=== PATIENT | male | born 1955 | race Caucasian/White ===

== ENCOUNTER 2020-12-07 21:51 | Inpatient (IN) | payer OTHER ==
[~2020-12-07] VITALS: Ht 172.7 cm; Wt 59.9 kg
--- NOTE | 2020-12-07 22:12 | NUR ---
service technician in room to draw blood from patient.
[2020-12-07] MEDS ORDERED: ONDANSETRON 4 MG/2 ML VIAL IV ONE (22:15)
[2020-12-07] MEDS ORDERED: MORPHINE SULFATE 2 MG/1 ML DISP.SYRIN IV ONE (22:15)
[2020-12-07 22:21] LABS: BASOPHILS % (AUTO) 0.3 % (0.0-2.0); EOSINOPHILS % (AUTO) 0.5 % (0.0-7.0); HEMATOCRIT 46.3 % (36.7-47.1); HEMOGLOBIN 15.7 g/dL (12.5-16.3); LYMPHOCYTES # (AUTO) 2.7 K/uL (20.0-40.0); LYMPHOCYTES % (AUTO) 28.5 % (20.5-51.5); MEAN CORPUSCULAR HEMOGLOBIN 34.2 uug (23.8-33.4); MEAN CORPUSCULAR HGB CONC 34 g/dL (32.5-36.3); MEAN CORPUSCULAR VOLUME 100.6 fL (73.0-96.2); MONOCYTES # (AUTO) 0.7 K/uL (2.0-10.0); MONOCYTES % (AUTO) 7.9 % (0.0-11.0); NEUTROPHILS % (AUTO) 62.8 % (38.5-71.5); PLATELET COUNT (AUTO) 209 K/uL (152-348); WHITE BLOOD COUNT (AUTO) 9.5 K/uL (3.6-10.2)
[2020-12-07] MEDS ORDERED: ONDANSETRON 4 MG/2 ML VIAL ONE (22:29)
[2020-12-07] MEDS ORDERED: MORPHINE SULFATE 2 MG/1 ML DISP.SYRIN ONE (22:29)
--- NOTE | 2020-12-07 22:30 | NUR ---
Patient taken out by electrical design technician for x-rays and CT scan.
[2020-12-07 22:32] LABS: POTASSIUM 3.3 mmol/L (3.5-5.1)
[2020-12-07 22:38] LABS: BILIRUBIN,DIRECT 0.1 mg/dL (0.0-0.2); BILIRUBIN,TOTAL 0.3 mg/dL (0.2-1.0); TOTAL PROTEIN, SERUM 7.3 g/dL (6.4-8.2)
--- NOTE | 2020-12-07 22:50 | NUR ---
prosthetics technician Obi called, blood alcohol level for patient is 0.20.
[2020-12-07] MEDS ORDERED: MORPHINE SULFATE 4 MG/1 ML DISP.SYRIN IV ONE (23:00)
[2020-12-07] MEDS ORDERED: POTASSIUM BICARBONATE/CIT AC 25 MEQ TABLET.EFF PO ONE (23:00)
[2020-12-07] MEDS ORDERED: POTASSIUM BICARBONATE/CIT AC 25 MEQ TABLET.EFF ONE (23:14)
[2020-12-07] MEDS ORDERED: MORPHINE SULFATE 4 MG/1 ML DISP.SYRIN ONE (23:14)
[2020-12-07] MEDS ORDERED: ALBUTEROL SULFATE 2.5 MG/3 ML NEBU NEB ONE (23:15)
[2020-12-07] MEDS ORDERED: ALBUTEROL SULFATE 2.5 MG/3 ML NEBU ONE (23:19)
--- NOTE | 2020-12-07 23:24 | NUR ---
Respiratory therapist in room to provide breathing tx to patient.
[2020-12-08 00:03] LABS: *BILIRUBIN,URIN NEGATIVE (NEGATIVE); *BLOOD, URINE NEGATIVE (NEGATIVE); *CLARITY,URINE CLEAR (CLEAR); *COLOR,URINE YELLOW (YELLOW); *KETONES,URINE NEGATIVE (NEGATIVE); *UROBILINOGEN,URINE 0.2 E.U./dl (NORMAL); LEUKOCYTE ESTERASE ,URINE NEGATIVE (NEGATIVE); NITRITE, URINE NEGATIVE (NEGATIVE); PH,URINE 5.5 (5.0-8.0); UGLUCOSE NEGATIVE (NEGATIVE)
[2020-12-08 00:18] LABS: *AMPHETAMINE, URINE NEGATIVE (NEGATIVE); *CANNABINOID, URINE POSITIVE (NEGATIVE); *COCCAINE, URINE NEGATIVE (NEGATIVE); *OPIATE, URINE NEGATIVE (NEGATIVE); *PHENCYCLIDINE SCREEN,URINE NEGATIVE (NEGATIVE)
--- NOTE | 2020-12-08 00:26 | NUR ---
radiography technician Obi reports patient is COVID negative.
--- NOTE | 2020-12-08 00:45 | NUR ---
[employer] called, Zbigniew Canales paged. Pending call back.
--- NOTE | 2020-12-08 00:57 | NUR ---
DORENE Canales called back, call transferred to MD Pang.
[2020-12-08] MEDS ORDERED: ONDANSETRON 4 MG/2 ML VIAL IV PRN (01:00)
[2020-12-08] MEDS ORDERED: MAGNESIUM HYDROXIDE 30 ML LIQUID UDC PO PRN (01:00)
[2020-12-08] MEDS ORDERED: Z GUARD REMEDY PASTE 57 GM TUBE TOP PRN (01:00)
[2020-12-08] MEDS ORDERED: ACETAMINOPHEN 325 MG TABLET PO PRN (01:00)
--- NOTE | 2020-12-08 01:25 | NUR ---
Called for room, patient will be assigned to telemetry room 306.
--- NOTE | 2020-12-08 01:36 | NUR ---
Report given to СЕРГЕЙ Whiteside.
--- NOTE | 2020-12-08 02:10 | NUR ---
Pt. admitted to telemetry 306, under care of DORENE Canales. Belongs List completed.
[2020-12-08] MEDS: IV NS 1000 ML 1,000 ML IV PRN ×2 (02:24→15:27)
[2020-12-08 02:30] VITALS: BP 158/93
[2020-12-08] MEDS: HYDROCODONE/APAP 10-325 MG TABLET PO PRN ×3 (02:57→17:50)
[2020-12-08 04:03] VITALS: BP 123/80
[2020-12-08] MEDS: PANTOPRAZOLE SODIUM 40 MG TABLET.DR PO SCH (06:53)
--- NOTE | 2020-12-08 07:30 | NUR ---
Received patient in bed awake alert and oriented times 4. Patient complains of rib pain that worsens when he coughs. Monitoring for signs of withdrawal. Safety and seizure precautions are in place. Will continue to monitor.
[2020-12-08] MEDS: HYDROCODONE/APAP 5-325MG TABLET PO PRN ×2 (07:34→14:09)
[2020-12-08] MEDS: THIAMINE HCL 100 MG TABLET PO SCH (08:57)
--- NOTE | 2020-12-08 10:00 | NUR ---
Radiology report from Dr Carranza indicates a mildly increased pneumothorax compared to yesterday. Will make MD aware. Will continue to monitor.
--- NOTE | 2020-12-08 10:30 | NUR ---
Made MD Woods aware of radiology findings.
[2020-12-08 11:33] VITALS: BP 183/87
[2020-12-08 15:09] VITALS: BP 179/95
[2020-12-08] MEDS: LORAZEPAM 2 MG/1 ML VIAL IV PRN (17:50)
--- NOTE | 2020-12-08 18:00 | NUR ---
Patient's blood pressure was elevated. Made MD aware. No new orders given, MD states that elevated BP is side effect of ETOH withdrawal. Gave Ativan and pain medication to see if controlling pain with help decrease BP. Will continue to monitor.
--- NOTE | 2020-12-08 19:36 | NUR ---
Patient is resting in bed. BP is still elevated at 168/102. Gave medications as ordered. Safety precautions are in place. Will endorse to oncoming nurse.
[2020-12-08 20:03] VITALS: BP 168/102
--- NOTE | 2020-12-08 21:53 | NUR ---
report given to Shawna RUSHING who will assume care; safety maintained; continue to monitor.
[2020-12-09] VITALS: BP 147/75
[2020-12-09] MEDS: HYDROCODONE/APAP 10-325 MG TABLET PO PRN ×4 (01:57→22:22)
[2020-12-09 04:03] VITALS: BP 148/75
[2020-12-09] MEDS: IV NS 1000 ML 1,000 ML IV PRN (04:34)
[2020-12-09] MEDS: PANTOPRAZOLE SODIUM 40 MG TABLET.DR PO SCH (06:14)
[2020-12-09 06:57] LABS: BASOPHILS % (AUTO) 0.4 % (0.0-2.0); EOSINOPHILS % (AUTO) 0.5 % (0.0-7.0); HEMATOCRIT 42.1 % (36.7-47.1); HEMOGLOBIN 14.1 g/dL (12.5-16.3); LYMPHOCYTES % (AUTO) 24.1 % (20.5-51.5); MEAN CORPUSCULAR HEMOGLOBIN 33.8 uug (23.8-33.4); MEAN CORPUSCULAR HGB CONC 33 g/dL (32.5-36.3); MEAN CORPUSCULAR VOLUME 101.1 fL (73.0-96.2); MONOCYTES # (AUTO) 1.2 K/uL (2.0-10.0); MONOCYTES % (AUTO) 14.2 % (0.0-11.0); NEUTROPHILS % (AUTO) 60.8 % (38.5-71.5); PLATELET COUNT (AUTO) 193 K/uL (152-348); RED BLOOD CELL COUNT(AUTO) 4.17 MIL/uL (4.06-5.63); WHITE BLOOD COUNT (AUTO) 8.3 K/uL (3.6-10.2)
[2020-12-09 07:38] LABS: CREATININE 0.8 mg/dL (0.6-1.3); MAGNESIUM 2.2 mg/dL (1.8-2.4); PHOSPHOROUS 3.4 mg/dL (2.5-4.9); POTASSIUM 4.5 mmol/L (3.5-5.1)
[2020-12-09 07:40] LABS: THYROID STIMULATING HORMONE 1.466 mIU/mL (0.358-3.740)
[2020-12-09] MEDS: ALBUTEROL SULFATE 2.5 MG/3 ML NEBU NEB SCH ×5 (07:51→22:31)
[2020-12-09] MEDS: IPRATROPIUM BROMIDE 0.5 MG/2.5 ML NEBU NEB SCH ×5 (07:52→22:31)
[2020-12-09] MEDS: THIAMINE HCL 100 MG TABLET PO SCH (08:29)
[2020-12-09] MEDS: methylPREDNISolone SOD SUCC 125 MG/2 ML VIAL IV SCH (08:29)
[2020-12-09 10:14] VITALS: BP 160/86
[2020-12-09] MEDS: HYDROCODONE/APAP 5-325MG TABLET PO PRN ×2 (10:46→18:43)
[2020-12-09 11:28] VITALS: BP 181/94
[2020-12-09 14:42] LABS: EOSINOPHILS % (MANUAL) 2 % (0-8); LYMPHOCYTES % (MANUAL) 25 % (20-40); MONOCYTES % (MANUAL) 12 % (2-10); NEUTROPHILS % (MANUAL) 61 % (42-75)
[2020-12-09 16:00] VITALS: BP 141/84
[2020-12-09 20:08] VITALS: BP 159/86
[2020-12-10] VITALS (8 sets, daily range): BP systolic 154–176; BP diastolic 78–123
[2020-12-10] MEDS: IPRATROPIUM BROMIDE 0.5 MG/2.5 ML NEBU NEB SCH ×5 (02:30→19:55)
[2020-12-10] MEDS: ALBUTEROL SULFATE 2.5 MG/3 ML NEBU NEB SCH ×5 (02:30→19:55)
--- NOTE | 2020-12-10 05:15 | NUR ---
Patient's Iv pulled out .Inserted new Iv line on right AC 22 g with good blood return . Tolerated well.Continue IVF Ns running at 75 ml/hr.Pt c/o rib pain medicated with Star with good result.NSR on tele monitor. Continue safety measures.
[2020-12-10] MEDS: HYDROCODONE/APAP 10-325 MG TABLET PO PRN ×2 (05:29→13:29)
[2020-12-10 06:15] LABS: BASOPHILS % (AUTO) 0.3 % (0.0-2.0); EOSINOPHILS % (AUTO) 0.3 % (0.0-7.0); HEMATOCRIT 43.1 % (36.7-47.1); HEMOGLOBIN 14.2 g/dL (12.5-16.3); LYMPHOCYTES # (AUTO) 1.9 K/uL (20.0-40.0); LYMPHOCYTES % (AUTO) 20.2 % (20.5-51.5); MEAN CORPUSCULAR HEMOGLOBIN 33.2 uug (23.8-33.4); MEAN CORPUSCULAR HGB CONC 33 g/dL (32.5-36.3); MEAN CORPUSCULAR VOLUME 100.6 fL (73.0-96.2); MONOCYTES # (AUTO) 1.1 K/uL (2.0-10.0); MONOCYTES % (AUTO) 12.1 % (0.0-11.0); NEUTROPHILS # (AUTO) 6.2 K/uL (1.8-8.9); NEUTROPHILS % (AUTO) 67.1 % (38.5-71.5); PLATELET COUNT (AUTO) 181 K/uL (152-348); RED BLOOD CELL COUNT(AUTO) 4.28 MIL/uL (4.06-5.63); WHITE BLOOD COUNT (AUTO) 9.2 K/uL (3.6-10.2)
[2020-12-10] MEDS: PANTOPRAZOLE SODIUM 40 MG TABLET.DR PO SCH (06:18)
[2020-12-10 06:31] LABS: CREATININE 0.7 mg/dL (0.6-1.3)
--- NOTE | 2020-12-10 07:48 | NUR ---
Dr Woods notified of welder 2nd shift RN's report that pt has difficulty sleeping and is taking Trazodone at home. Per MD, verify dose first from prescribing pharmacy. Per Pt, his pharmacy is the [facility]", will verify once it opens at 8 am.
--- NOTE | 2020-12-10 08:00 | NUR ---
Notifed Dr Woods that I spoke with Moises from the [facility], who confirmed that patient is taking Trazodome 100 mg 2 tabs at bedtime.
[2020-12-10] MEDS: THIAMINE HCL 100 MG TABLET PO SCH (08:48)
[2020-12-10] MEDS: methylPREDNISolone SOD SUCC 125 MG/2 ML VIAL IV SCH (08:48)
[2020-12-10] MEDS: IV NS 1000 ML 1,000 ML IV PRN (08:48)
--- NOTE | 2020-12-10 09:41 | NUR ---
Pt continues to be resting in bed, with no signs of acute distress. NO verbalizations of SI.HI. No unnecessary cords or wires near bed. Pt with no episodes of aggressive behavior, cooperative with care. Pending midline insertion. launderette attendant at bedside. Addendum: 12/10/20 at 1414 by MARY ELLEN ARIZA RN Wrong pt.
[2020-12-10] MEDS: LIDOCAINE 5% PATCH TD SCH (11:22)
[2020-12-10] MEDS ORDERED: TRAZ-257 PO (15:20)
[2020-12-10] MEDS ORDERED: ATOR10TA PO (16:04)
[2020-12-10] MEDS: LORAZEPAM 2 MG/1 ML VIAL IV PRN (17:05)
--- NOTE | 2020-12-10 17:50 | NUR ---
Pt is stable throughout shift. Tolerated ongoing 15LPM non-rebreather mask and saturating 99% -100%. Pain is managed with Whiting 10/325mg x 1 dose. With episodes of elevated BP, managed with pain medications and medication for restlessness. Slightly effective. MD aware of latest BP: 161/96, no new orders for it. No symptoms, patient denies headache, lightheadedness, pain or discomfort. Resting well at this time. IV running on R FA 20 G, with no issues. Urinates in urinal with hourly output >100cc. Will endorse to incoming shift.
--- NOTE | 2020-12-10 19:30 | NUR ---
Received patient lying in bed. AAOx3 but with periods of confusion with mild restlessness/anxiety noted. Patient was given Ativan 1mg IV at 1705 by day shift nurse. Placed O2 back with non-rebreather mask at 15LPM. NSR on tele at 99/min. IV site on left FA intact and patent and secured with tape and Kerlix. IVF infusing. Safety measure initiated and call avery within reached. Continue to monitor.
--- NOTE | 2020-12-10 20:45 | NUR ---
Patient insisting of getting Trazodone for sleep. Per pt he gets trazadone at night to help him sleep. Also spoke to pt daughter Fay and verified as well that pt was taking Trazodone 200mg nightly for sleep. Telephone call to exchange to arturo Woods. Awaiting for return call.
--- NOTE | 2020-12-10 21:00 | NUR ---
Return call from Dr. Woods received, informed him about patient request for his trazodone. Dr Woods stated he will review med from home and med recon and will order. Awaiting for orders. Notified both patient and patient daughter Fay over the phone.
[2020-12-10] MEDS ORDERED: TRAZODONE 100 MG TABLET PO PRN (21:15)
[2020-12-11 00:04] VITALS: BP 169/66
--- NOTE | 2020-12-11 01:45 | NUR ---
Patient BP 169/66 with HR of 89, retook BP again and obtain 167/77, HR 77. Per pt he has Hx of HTN and was taking Atenolol at one point 3-4 yrs ago but only took it for 2 mos. and stopped because he lost the medication. Pt complaining of headache at this time. Denies any dizziness or chest pain. Dr. Dennison made aware and ordered to start pt on metoprolol 25mg PO Q12 hrs, first dose now and also Hydralazine 25mg po every 6 hrs PRN for SBP above 150. Order verified and will carry out.
[2020-12-11] MEDS: METOPROLOL TARTRATE 25 MG TABLET PO SCH ×3 (01:59→20:20)
[2020-12-11] MEDS ORDERED: hydrALAZINE HCL 25 MG TABLET PO PRN (02:00)
--- NOTE | 2020-12-11 03:04 | NUR ---
Patient refused to have BP check at this time. Requesting to have it checked at 0600. Denies any further headache.
[2020-12-11] MEDS: IV NS 1000 ML 1,000 ML IV PRN (03:37)
[2020-12-11 04:04] VITALS: BP 179/90
--- NOTE | 2020-12-11 06:20 | NUR ---
AAOx3-4 with periods of confusion. Denies any pain or SOB. On O2 at 15LPM via non-rebreather mask. NSR on tele at 80/min. IV site on left FA remains intact and patent and secured with tape and Coban. IVF infusing. Needs attended to and met. Safety measure maintained and call avery within reached.
[2020-12-11 06:27] LABS: BASOPHILS % (AUTO) 0.2 % (0.0-2.0); EOSINOPHILS % (AUTO) 0.1 % (0.0-7.0); HEMATOCRIT 41.2 % (36.7-47.1); HEMOGLOBIN 13.8 g/dL (12.5-16.3); LYMPHOCYTES # (AUTO) 1.9 K/uL (20.0-40.0); LYMPHOCYTES % (AUTO) 18.3 % (20.5-51.5); MEAN CORPUSCULAR HEMOGLOBIN 33.7 uug (23.8-33.4); MEAN CORPUSCULAR HGB CONC 34 g/dL (32.5-36.3); MEAN CORPUSCULAR VOLUME 100.8 fL (73.0-96.2); MONOCYTES # (AUTO) 1.2 K/uL (2.0-10.0); MONOCYTES % (AUTO) 11.5 % (0.0-11.0); NEUTROPHILS # (AUTO) 7.2 K/uL (1.8-8.9); NEUTROPHILS % (AUTO) 69.9 % (38.5-71.5); PLATELET COUNT (AUTO) 199 K/uL (152-348); RED BLOOD CELL COUNT(AUTO) 4.08 MIL/uL (4.06-5.63); WHITE BLOOD COUNT (AUTO) 10.3 K/uL (3.6-10.2)
[2020-12-11] MEDS: PANTOPRAZOLE SODIUM 40 MG TABLET.DR PO SCH (06:28)
[2020-12-11 06:32] VITALS: BP 156/83
[2020-12-11 06:42] LABS: CREATININE 0.8 mg/dL (0.6-1.3); POTASSIUM 4.2 mmol/L (3.5-5.1)
--- NOTE | 2020-12-11 07:30 | NUR ---
Awake, alert, oriented x 3, impulsive. O2 per NRB AT 15L. IVF infusing. Bed alarm on
[2020-12-11] MEDS: IPRATROPIUM BROMIDE 0.5 MG/2.5 ML NEBU NEB SCH ×4 (08:10→20:40)
[2020-12-11] MEDS: ALBUTEROL SULFATE 2.5 MG/3 ML NEBU NEB SCH ×4 (08:10→20:40)
[2020-12-11] MEDS: methylPREDNISolone SOD SUCC 125 MG/2 ML VIAL IV SCH (08:50)
[2020-12-11] MEDS: LIDOCAINE 5% PATCH TD SCH (08:51)
[2020-12-11] MEDS: LORAZEPAM 2 MG/1 ML VIAL IV PRN ×3 (08:51→20:37)
[2020-12-11] MEDS: THIAMINE HCL 100 MG TABLET PO SCH (08:51)
--- NOTE | 2020-12-11 10:00 | NUR ---
Patient became more confused, restless, walking out of room several times, hallucinating "seeing puppies" pulled out IV site.
[2020-12-11 11:45] VITALS: BP 158/80
--- NOTE | 2020-12-11 13:00 | NUR ---
Saline reinserted. Ativan IV given. IVF resumed. Repositioned comfortably. Bed alarm on.
--- NOTE | 2020-12-11 13:30 | NUR ---
Still confused. Removed saline lock, walking out of the room with unsteady gait. Placed on michele chair
[2020-12-11 15:20] VITALS: BP 149/117
[2020-12-11] MEDS: HYDROCODONE/APAP 10-325 MG TABLET PO PRN ×2 (15:29→22:42)
--- NOTE | 2020-12-11 16:30 | NUR ---
Agitated, combative,twisting arms of staff, fall risk 1:1 sitter at bedside. Crisis team consulted
[2020-12-11] MEDS: ENSURE ENLIVE (VAN) 240 ML LIQUID PO SCH (17:00)
--- NOTE | 2020-12-11 19:29 | NUR ---
Crisis team seen and evaluated patient. Placed on hold [id number]; Dr. Cotton on consult; 1:1 sitter at bedside. Endorsed for further care
--- NOTE | 2020-12-11 19:45 | NUR ---
Patient now on 5150 hold. Still very agitation, was able to clim out of reclining chair, being combative and having visual hallucinations. Telephone call to Dr. Cotton and informed him of patient current condition and behavior. Per Dr. Cotton, he believes that patient behavior is still part of alcohol withdrawal (Deliruim tremens) and only gave order of Zyprexa Zydis 5mg ever [address] Cotton instructed this nurse to call cloth measurer machine MD at this time and also inform of pt condition. Will carry out Dr Cotton's order.
--- NOTE | 2020-12-11 19:50 | NUR ---
Telephone call to ELVIN Casiano and informed her of patient current behavior and also informed her what Dr. Cotton had stated. ELVIN Casiano increase order for Ativan from 1mg to 2mg every 4 hours PRN for anxiety/restlessness. Order verified and will carry out.
[2020-12-11] MEDS: OLANZAPINE ZYDIS 5 MG TAB.RAPDIS PO SCH (20:19)
[2020-12-11] MEDS: ATORVASTATIN 10 MG TABLET PO SCH (20:20)
[2020-12-11 20:23] VITALS: BP 169/88
--- NOTE | 2020-12-11 21:10 | NUR ---
Telephone call from pt daughter Fay and updated her of patient condition and states understanding. Fay requesting to speak with the Dr once he visit during the day. Will relay message to day shift RN tomorrow.
[2020-12-11] MEDS: TRAZODONE 100 MG TABLET PO PRN (22:41)
--- NOTE | 2020-12-11 23:30 | NUR ---
Patient refused to have VS checked, getting combative.
[2020-12-12] MEDS: LORAZEPAM 2 MG/1 ML VIAL IV PRN ×4 (00:40→17:37)
[2020-12-12] MEDS: IV NS 1000 ML 1,000 ML IV PRN ×2 (02:37→16:15)
[2020-12-12] MEDS: PANTOPRAZOLE SODIUM 40 MG TABLET.DR PO SCH (06:01)
--- NOTE | 2020-12-12 06:22 | NUR ---
Pt calm and cooperative at this time. Still with periods of restlessness, anxiety and agitation. gets easily angry and becomes combative, refused to have his tele monitor on, keeps on removing it. Refused to have BP check, riff off BP cuff before even being able to get BP. Lorazepam 2mg IV given every 4 hours PRN and somewhat effective. Zyprexa Zydis 5mg po per order given as well. 1:1 sitter on bedside. IV site on right AC remains intact. IVF infusing. Safety measure maintained.
[2020-12-12 06:47] LABS: BASOPHILS # (AUTO) 0.1 K/uL (0.0-8.0); BASOPHILS % (AUTO) 0.6 % (0.0-2.0); EOSINOPHILS # (AUTO) 0.1 K/uL (0.0-0.7); EOSINOPHILS % (AUTO) 0.9 % (0.0-7.0); HEMATOCRIT 44.2 % (36.7-47.1); HEMOGLOBIN 14.5 g/dL (12.5-16.3); LYMPHOCYTES # (AUTO) 2.5 K/uL (20.0-40.0); LYMPHOCYTES % (AUTO) 25.4 % (20.5-51.5); MEAN CORPUSCULAR HEMOGLOBIN 33.4 uug (23.8-33.4); MEAN CORPUSCULAR HGB CONC 33 g/dL (32.5-36.3); MEAN CORPUSCULAR VOLUME 101.9 fL (73.0-96.2); MONOCYTES # (AUTO) 1.3 K/uL (2.0-10.0); MONOCYTES % (AUTO) 13.1 % (0.0-11.0); NEUTROPHILS # (AUTO) 5.8 K/uL (1.8-8.9); PLATELET COUNT (AUTO) 201 K/uL (152-348); RED BLOOD CELL COUNT(AUTO) 4.34 MIL/uL (4.06-5.63); WHITE BLOOD COUNT (AUTO) 9.7 K/uL (3.6-10.2)
[2020-12-12 07:15] LABS: CREATININE 0.7 mg/dL (0.6-1.3)
[2020-12-12] MEDS: ALBUTEROL SULFATE 2.5 MG/3 ML NEBU NEB SCH ×4 (08:30→19:30)
[2020-12-12] MEDS: IPRATROPIUM BROMIDE 0.5 MG/2.5 ML NEBU NEB SCH ×4 (08:37→19:30)
[2020-12-12] MEDS: LIDOCAINE 5% PATCH TD SCH (08:52)
[2020-12-12] MEDS: methylPREDNISolone SOD SUCC 125 MG/2 ML VIAL IV SCH (08:52)
[2020-12-12] MEDS: THIAMINE HCL 100 MG TABLET PO SCH (08:57)
[2020-12-12] MEDS: METOPROLOL TARTRATE 25 MG TABLET PO SCH ×2 (08:58→21:29)
[2020-12-12] MEDS: ENSURE ENLIVE (VAN) 240 ML LIQUID PO SCH ×2 (09:01→17:00)
--- NOTE | 2020-12-12 09:46 | NUR ---
PATIENT IS AWAKE ALERT AND AWARE VERY AGITATED AND RESTLESS GRABBING AND ATTEMPTING TO GET OUT OF BED UNABLE TO REDIRECT MEDICATED WITH ATIVAN ORDERED AT THIS TIME.REMAIN ON ONE ON ONE SITTER FOR SAFETY ON 15 LITERS NRM WITH NO SOB TELE IS OFF DUE TO THE FACT THAT PATIENT REMOVES WILL ATTEMPT TO REATTACH ONCE HE SETTLES DOWN.
--- NOTE | 2020-12-12 10:21 | NUR ---
TELEMETRY LEADS REAPPLIED WITH MUCH DIFFICULTY PATIENT IS GRABBING AND VERY UNCOOPERATIVE VERBALLY ABUSIVE MANAGED TO REAPPLY AT THIS TIME WILL CONTINUE TO OBSERVE
[2020-12-12] MEDS: OLANZAPINE ZYDIS 5 MG TAB.RAPDIS PO SCH (11:35)
--- NOTE | 2020-12-12 11:35 | NUR ---
VERY CONFUSED DISORIENTED TELLING THIS WRITTER AND THE ASSIGNED SITTER TO LEAVE HIS HOUSE ATTEMPTS TO REDIRECT FAILED SO PATIENT MEDICATED WITH ZYPREXA ORAL ORDERED WITH MUCH DIFFICULTY WILL CONTINUE TO OBSERVE.
[2020-12-12 11:45] VITALS: BP 121/52
--- NOTE | 2020-12-12 17:37 | NUR ---
PATIENT REMAINS CONFUSED DISORIENTED DELUSIONAL AND PULLED OUT HIS NRM AND UNCOOPERATIVE WITH CARE UNABLE TO REDIRECT MEDICATED WITH ATIVAN ORDERED MADE COMFORTABLE CONTINUE TO HAVE ONE ON ONE SITTER ORDERED PATIENT IS ON HOLD IVF IN PROGRESS ORDERED APPETITE IS POOR UNABLE DUE TO POOR REALITY ORIENTATION MADE COMFORTABLE WILL OBSERVE.
[2020-12-12 21:10] VITALS: BP 115/62
[2020-12-12] MEDS: ATORVASTATIN 10 MG TABLET PO SCH (21:29)
[2020-12-13] VITALS (7 sets, daily range): BP systolic 141–179; BP diastolic 61–86
--- NOTE | 2020-12-13 00:08 | NUR ---
Received patient in bed asleep. No s/s of acute distress noted at this time. Patient on 15L NRBM with O2 @ 100%, patient compliant with keeping it in place. Tele monitor in place. sinus rhythm noted at this time. Patient is confused, disoriented, and delusional when awake. 1:1 sitter at bedside for [address], expires on 12/14 @ 1850. Reality orientation provided. Safety measures in place, bed locked and in lowest position with alarm on.
[2020-12-13] MEDS: IV NS 1000 ML 1,000 ML IV PRN ×2 (05:20→18:23)
[2020-12-13 06:16] LABS: BASOPHILS # (AUTO) 0.4 K/uL (0.0-8.0); BASOPHILS % (AUTO) 3.2 % (0.0-2.0); EOSINOPHILS # (AUTO) 0.1 K/uL (0.0-0.7); EOSINOPHILS % (AUTO) 1.2 % (0.0-7.0); HEMATOCRIT 42.2 % (36.7-47.1); HEMOGLOBIN 13.9 g/dL (12.5-16.3); LYMPHOCYTES % (AUTO) 16.5 % (20.5-51.5); MEAN CORPUSCULAR HGB CONC 33 g/dL (32.5-36.3); MEAN CORPUSCULAR VOLUME 100.4 fL (73.0-96.2); MONOCYTES # (AUTO) 1.2 K/uL (2.0-10.0); MONOCYTES % (AUTO) 9.7 % (0.0-11.0); NEUTROPHILS # (AUTO) 8.3 K/uL (1.8-8.9); NEUTROPHILS % (AUTO) 69.4 % (38.5-71.5); PLATELET COUNT (AUTO) 206 K/uL (152-348)
[2020-12-13] MEDS: PANTOPRAZOLE SODIUM 40 MG TABLET.DR PO SCH (06:26)
[2020-12-13 06:28] LABS: CREATININE 0.9 mg/dL (0.6-1.3); POTASSIUM 4.1 mmol/L (3.5-5.1)
--- NOTE | 2020-12-13 06:38 | NUR ---
Patient in bed resting, calm demeanor throughout shift. Compliant with medications and care given. Patient denies feeling anxious stating "im just tired and want to sleep". Tele monitor in place. Pt on NRBM at 15L, compliant and kept in place, O2 @ 100%. 1:[address] for safety and hold. All patient needs were met and attended to. Safety measures in place, bed locked and in low position.
[2020-12-13] MEDS: ALBUTEROL SULFATE 2.5 MG/3 ML NEBU NEB SCH ×4 (06:48→19:30)
[2020-12-13] MEDS: IPRATROPIUM BROMIDE 0.5 MG/2.5 ML NEBU NEB SCH ×4 (06:48→19:30)
--- NOTE | 2020-12-13 08:01 | NUR ---
PATIENT SEEN AND EXAMINED BY DR ONOFRE WITH NEW ORDERS AND NOTED.
[2020-12-13] MEDS: THIAMINE HCL 100 MG TABLET PO SCH (08:28)
[2020-12-13] MEDS: methylPREDNISolone SOD SUCC 125 MG/2 ML VIAL IV SCH (08:28)
[2020-12-13] MEDS: METOPROLOL TARTRATE 25 MG TABLET PO SCH ×2 (08:29→20:07)
[2020-12-13] MEDS: ENSURE ENLIVE (VAN) 240 ML LIQUID PO SCH ×2 (08:29→16:01)
--- NOTE | 2020-12-13 08:30 | NUR ---
PATIENT IS MORE ALERT AND COOPERATIVE STATED SLEPT WELL LAST NITE COMPLIANT WITH MEDICATIONS AND CARE REMAIN ON HOLD WITH A SITTER IVF IN PROGRESS ORDERED WILL CONTINUE TO OBSERVE.
[2020-12-13] MEDS: LIDOCAINE 5% PATCH TD SCH (08:33)
--- NOTE | 2020-12-13 12:56 | NUR ---
REMAIN ALERT AND COOPERATIVE HAS A SITTER AT HIS BED SIDE REMAIN ON HOLD O2 ORDERED 15 PERCENT NRM NO S/S OF ETOH WITHDRAWAL AT THIS TIME WILL CONTINUE TO OBSERVE.
--- NOTE | 2020-12-13 17:47 | NUR ---
RESTING IN BED AWAKE ALERT ANSWERING QUESTIONS DENIES DISCOMFORTS APPETITE IS FAIR REMAIN ON IVF ORDERED WITH NO S/S OF INFILTERATION ON SITE MADE COMFORTABLE WILL CONTINUE TO OBSERVE
[2020-12-13] MEDS: ATORVASTATIN 10 MG TABLET PO SCH (20:07)
[2020-12-13] MEDS: HYDROCODONE/APAP 5-325MG TABLET PO PRN (20:14)
[2020-12-13] MEDS: TRAZODONE 100 MG TABLET PO PRN (21:39)
--- NOTE | 2020-12-13 21:59 | NUR ---
Received patient in bed resting. Patient is awake and alert, oriented to place and engaging in meaningful conversation. Compliant with medications and care provided. 1:[address] for hold and safety. Right AC IV patent and intact. Patient on 15L NRBM. Safety measures in place with bed locked and in lowest position.
[2020-12-14 00:05] VITALS: BP 111/57
[2020-12-14 04:49] VITALS: BP 137/75
[2020-12-14] MEDS: PANTOPRAZOLE SODIUM 40 MG TABLET.DR PO SCH (06:06)
--- NOTE | 2020-12-14 06:43 | NUR ---
Patient resting in bed. No s/s of acute distress noted at this time. Compliant with NRBM and tele monitor. Patient denies SOB and pain at this time. 1:[address] for hold[address] All patient needs were met and attended to. Safety measures in place and will endorse to oncoming shift.
[2020-12-14 06:54] LABS: BASOPHILS % (AUTO) 0.1 % (0.0-2.0); EOSINOPHILS # (AUTO) 0.2 K/uL (0.0-0.7); EOSINOPHILS % (AUTO) 1.8 % (0.0-7.0); HEMATOCRIT 39.5 % (36.7-47.1); HEMOGLOBIN 12.7 g/dL (12.5-16.3); LYMPHOCYTES # (AUTO) 2.2 K/uL (20.0-40.0); LYMPHOCYTES % (AUTO) 20.8 % (20.5-51.5); MEAN CORPUSCULAR HEMOGLOBIN 32.9 uug (23.8-33.4); MEAN CORPUSCULAR HGB CONC 32 g/dL (32.5-36.3); MEAN CORPUSCULAR VOLUME 101.8 fL (73.0-96.2); MONOCYTES # (AUTO) 1.2 K/uL (2.0-10.0); MONOCYTES % (AUTO) 11.9 % (0.0-11.0); NEUTROPHILS # (AUTO) 6.8 K/uL (1.8-8.9); NEUTROPHILS % (AUTO) 65.4 % (38.5-71.5); PLATELET COUNT (AUTO) 181 K/uL (152-348); RED BLOOD CELL COUNT(AUTO) 3.88 MIL/uL (4.06-5.63); WHITE BLOOD COUNT (AUTO) 10.4 K/uL (3.6-10.2)
[2020-12-14 07:09] LABS: CREATININE 0.7 mg/dL (0.6-1.3); POTASSIUM 3.6 mmol/L (3.5-5.1)
[2020-12-14] MEDS: IV NS 1000 ML 1,000 ML IV PRN ×2 (07:20→21:41)
[2020-12-14] MEDS: IPRATROPIUM BROMIDE 0.5 MG/2.5 ML NEBU NEB SCH ×6 (07:31→19:55)
[2020-12-14] MEDS: ALBUTEROL SULFATE 2.5 MG/3 ML NEBU NEB SCH ×4 (07:31→19:56)
[2020-12-14 07:43] VITALS: BP 153/70
--- NOTE | 2020-12-14 08:30 | NUR ---
CALL RECEIVED FROM DR DE LA ROSA RE PROGRESS OF THE PATIENT NOTIFIED HIM THAT THE PATIENT WAS BETTER ALERT AND COOPERATIVE AND HAS NOT NEEDED THE PRN MOOD STABILIZERS FOR MORE THAN 24 HOURS NOW AND HE STATED TO CONNECT THE PHONE SO HE CAN SPEAK WITH THE PATIENT SO I DID.
[2020-12-14] MEDS: methylPREDNISolone SOD SUCC 40 MG/ML VIAL IV SCH (09:00)
[2020-12-14] MEDS: METOPROLOL TARTRATE 25 MG TABLET PO SCH ×2 (09:03→21:23)
[2020-12-14] MEDS: THIAMINE HCL 100 MG TABLET PO SCH (09:03)
[2020-12-14] MEDS: LIDOCAINE 5% PATCH TD SCH (09:06)
[2020-12-14] MEDS: ENSURE ENLIVE (VAN) 240 ML LIQUID PO SCH ×2 (09:06→16:49)
--- NOTE | 2020-12-14 09:09 | NUR ---
NOTED NEW ORDER FOR SOLUMEDROL TAPER DOWN BUT ALREADY GAVE THE 60 MG TODAY
--- NOTE | 2020-12-14 10:19 | NUR ---
ACCORDING TO THE PATIENT DR DE LA ROSA TOLD HIM THAT HE WILL BE HERE FOR 2 MORE DAYS AND HE WILL NOT BE REQUIRED TO BE ON HOLD SOON THE 72 HOURS HOLD WAS UP BUT I WAS ABLE TO VERIFY THIS FROM DR HOLT NOTES IN THE MEDITECH THE RVDA MASTER CERTIFIED RV TECHNICIAN NOTIFIED STATED WILL INFORM THE GRADING SUPERVISOR.
[2020-12-14 11:16] VITALS: BP 149/70
--- NOTE | 2020-12-14 14:51 | NUR ---
PER DR WRIGHT NOTES DISCONTINUE HOLD WHEN IT EXPIRES NO 14 DAY HOLD INDICATED. 5150 HOLD WILL TODAY AT 1850
[2020-12-14 15:30] VITALS: BP 150/68
--- NOTE | 2020-12-14 18:36 | NUR ---
IV SITE LEAKING UNABLE TO MANAGE REMOVED AND A NEW ONE INSERTED TO HIS RIGHT UPPER ARM GAUGE 20 AND IVF CONTINUED ORDERED.
[2020-12-14 20:06] VITALS: BP 122/62
[2020-12-14] MEDS: TRAZODONE 100 MG TABLET PO PRN (21:21)
[2020-12-14] MEDS: ATORVASTATIN 10 MG TABLET PO SCH (21:22)
[2020-12-14] MEDS: HYDROCODONE/APAP 10-325 MG TABLET PO PRN (21:42)
[2020-12-15 00:03] VITALS: BP 159/64
[2020-12-15 04:03] VITALS: BP 155/73
[2020-12-15] MEDS: PANTOPRAZOLE SODIUM 40 MG TABLET.DR PO SCH (06:03)
--- NOTE | 2020-12-15 07:02 | NUR ---
Patient rested well in between care; no acute distress; slept well and needs attended; norco x1 given last night; safety maintained; continue to monitor; continue plan of care.
[2020-12-15] MEDS: ALBUTEROL SULFATE 2.5 MG/3 ML NEBU NEB SCH ×4 (07:51→20:04)
[2020-12-15] MEDS: IPRATROPIUM BROMIDE 0.5 MG/2.5 ML NEBU NEB SCH ×4 (07:51→20:04)
[2020-12-15] MEDS: methylPREDNISolone SOD SUCC 40 MG/ML VIAL IV SCH (08:12)
[2020-12-15] MEDS: THIAMINE HCL 100 MG TABLET PO SCH (08:12)
[2020-12-15] MEDS: LIDOCAINE 5% PATCH TD SCH (08:13)
[2020-12-15] MEDS: METOPROLOL TARTRATE 25 MG TABLET PO SCH ×2 (08:13→21:17)
--- NOTE | 2020-12-15 08:15 | NUR ---
PATIENT SEEN AND EXAMINED BY DR MCCARTY WITH NEW ORDERS PATIENT REMAINS ON NRM AT 15L/M WITH NO S/S OF SHORTNESS OF BREATH AT THIS TIME HE IS ALERT AND ORIENTED COOPERATIVE REMAIN ON IVF ORDERED CALL LIGHTS AND PERSONAL BELONGINGS ARE WITHIN EASY REACH NOT IN DISTRESS AT THIS TIME.
[2020-12-15] MEDS: ENSURE ENLIVE (VAN) 240 ML LIQUID PO SCH ×2 (08:47→16:20)
[2020-12-15 11:21] VITALS: BP 136/82
--- NOTE | 2020-12-15 11:30 | NUR ---
PATIENT IS NOR ON ROOM AIR WAS SEEN BY THE RESPIRATORY THERAPIST WHO TITRATED HIM TO ROOM AIR AND DISCONTINUED THE NRM PER DR MCCARTY PATIENT WAS ALSO SEEN BY THE PHYSICAL THERAPY FOR EVALUATION AND HE WAS ABLE TO WALK IN THE HALLWAY WITH THE [facility] ENDURANCE IS GOOD PATIENT IS IN GOOD SPIRITS AND HAPPY THAT HE IS OFF O2 AND MAY BE DISCHARGED TOMORROW.
[2020-12-15] MEDS: IV NS 1000 ML 1,000 ML IV PRN (11:43)
[2020-12-15] MEDS ORDERED: OLANZAPINE ZYDIS 5 MG TAB.RAPDIS PO PRN (14:09)
[2020-12-15 15:02] VITALS: BP 106/71
--- NOTE | 2020-12-15 18:00 | NUR ---
RESTING DENIES DISCOMFORTS ALERT ORIENTED COOPERATIVE WITH IVF IN PROGRESS ORDERED NOT IN DISTRESS AT THIS TIME
[2020-12-15 20:08] VITALS: BP 148/93
[2020-12-15] MEDS: ATORVASTATIN 10 MG TABLET PO SCH (21:16)
[2020-12-15] MEDS: TRAZODONE 100 MG TABLET PO PRN (21:17)
[2020-12-16 00:08] VITALS: BP 137/64
[2020-12-16] MEDS: IV NS 1000 ML 1,000 ML IV PRN (01:23)
--- NOTE | 2020-12-16 01:41 | NUR ---
needs attended to, no acute distress noted. ivf infusing well. no unusual behavior presented. rested fairly wellon room air, tele reading sinus 61.looking forward to his discharge in am.
[2020-12-16 04:08] VITALS: BP 118/76
[2020-12-16] MEDS: PANTOPRAZOLE SODIUM 40 MG TABLET.DR PO SCH (06:22)
[2020-12-16 07:33] LABS: CREATININE 0.7 mg/dL (0.6-1.3); POTASSIUM 4.6 mmol/L (3.5-5.1)
[2020-12-16 07:39] LABS: BASOPHILS % (AUTO) 0.3 % (0.0-2.0); EOSINOPHILS # (AUTO) 0.1 K/uL (0.0-0.7); EOSINOPHILS % (AUTO) 1.5 % (0.0-7.0); HEMATOCRIT 40.2 % (36.7-47.1); HEMOGLOBIN 13.5 g/dL (12.5-16.3); LYMPHOCYTES # (AUTO) 2.3 K/uL (20.0-40.0); LYMPHOCYTES % (AUTO) 24.4 % (20.5-51.5); MEAN CORPUSCULAR HEMOGLOBIN 34.1 uug (23.8-33.4); MEAN CORPUSCULAR HGB CONC 34 g/dL (32.5-36.3); MEAN CORPUSCULAR VOLUME 101.4 fL (73.0-96.2); MONOCYTES # (AUTO) 1.1 K/uL (2.0-10.0); MONOCYTES % (AUTO) 11.9 % (0.0-11.0); NEUTROPHILS # (AUTO) 5.9 K/uL (1.8-8.9); NEUTROPHILS % (AUTO) 61.9 % (38.5-71.5); PLATELET COUNT (AUTO) 202 K/uL (152-348); RED BLOOD CELL COUNT(AUTO) 3.96 MIL/uL (4.06-5.63); WHITE BLOOD COUNT (AUTO) 9.6 K/uL (3.6-10.2)
--- NOTE | 2020-12-16 08:00 | NUR ---
Received change of shift report. pt in bed resting, awake alert and oriented x3. pt on room air, saturating at 97%, ambulatory with physical therapy. Urinal at bedside, IV access on the right upper arm IVF infusing NS at 75cc. bed in low and locked position, call light within reach, safety precautions in place, will continue with plan of care.
[2020-12-16] MEDS: ALBUTEROL SULFATE 2.5 MG/3 ML NEBU NEB SCH ×2 (08:05→11:17)
[2020-12-16] MEDS: IPRATROPIUM BROMIDE 0.5 MG/2.5 ML NEBU NEB SCH ×2 (08:05→11:16)
[2020-12-16] MEDS: THIAMINE HCL 100 MG TABLET PO SCH (08:39)
[2020-12-16] MEDS: METOPROLOL TARTRATE 25 MG TABLET PO SCH (08:39)
[2020-12-16] MEDS: LIDOCAINE 5% PATCH TD SCH ×2 (08:39→08:52)
[2020-12-16] MEDS: methylPREDNISolone SOD SUCC 40 MG/ML VIAL IV SCH (08:39)
[2020-12-16] MEDS: ENSURE ENLIVE (VAN) 240 ML LIQUID PO SCH (08:43)
[2020-12-16] MEDS ORDERED: METH4TAB3 PO (10:16)
[2020-12-16] MEDS ORDERED: ALBU18HF2 INH (10:16)
[2020-12-16 11:30] VITALS: BP 119/76
[2020-12-16] MEDS ORDERED: predniSONE 20 MG TABLET PO SCH (12:00)
--- NOTE | 2020-12-16 13:25 | NUR ---
pt discharged home. Pt escorted down via wheelchair with all belongings, paperwork,and prescriptions. Pt cooperative, and in pleasant mood. ID band and IV access removed prior to discharge. pt ambulatory, on room air saturating at 97%, no signs of distress noted, no reports of pain. all medications given as prescribed, pt awake alert and oriented x3, walks to restroom to void. Pt discharged home with daughter, Fay.
== END 2020-12-16 13:25 | disposition home or self-care (01) | DRG 200 ==
LOC: ER 21:54 → TELE3 12-08 02:00
PROVIDERS: ADMIT Family Medicine; ATTEND Nurse Practitioner Acute Care
DX: S27.0XXA Traumatic pneumothorax, initial encounter (principal); S22.32XA Fracture of one rib, left side, initial encounter for closed fracture; F23 Brief psychotic disorder; F10.131 Alcohol abuse with withdrawal delirium; W19.XXXA Unspecified fall, initial encounter; Y92.89 Other specified places as the place of occurrence of the external cause; Y90.6 Blood alcohol level of 120-199 mg/100 ml; E87.6 Hypokalemia; I10 Essential (primary) hypertension; J44.9 Chronic obstructive pulmonary disease, unspecified; R73.9 Hyperglycemia, unspecified; F17.210 Nicotine dependence, cigarettes, uncomplicated; Z20.822 Contact with and (suspected) exposure to COVID-19
CPT/HCPCS: 36415; 70030-TC; 70450; 71045; 71046; 71101; 72125; 83735; 84100; 84443; 85025; 93005; 94640; A4663; G0378; G0480; J2060; J2270; J2405; J2920; J2930; J3590; J7030; J7512